=== PATIENT | male | born 1985 | race Caucasian/White ===

== ENCOUNTER 2017-02-22 14:17 | Outpatient (CLI) | payer BC, OTHER ==
[2017-02-24 10:43] LABS: BASOPHILS % (AUTO) 0.6 % (0.0-2.0); EOSINOPHILS # (AUTO) 0.2 K/uL (0.0-0.7); EOSINOPHILS % (AUTO) 2.6 % (0.0-7.0); HEMATOCRIT 44.5 % (40-50); LYMPHOCYTES # (AUTO) 2.4 K/UL (0.8-4.8); LYMPHOCYTES % (AUTO) 29.8 % (20.5-51.5); MEAN CORPUSCULAR HEMOGLOBIN 28.7 UUG (27.0-31.0); MEAN CORPUSCULAR HGB CONC 34 g/dL (32.0-37.0); MEAN CORPUSCULAR VOLUME 85.1 FL (82.0-92.0); MONOCYTES # (AUTO) 0.5 K/UL (0.1-1.30); MONOCYTES % (AUTO) 6.5 % (0.0-11.0); NEUTROPHILS # (AUTO) 4.8 K/UL (1.8-8.9); NEUTROPHILS % (AUTO) 60.5 % (38.5-71.5); PLATELET COUNT (AUTO) 222 K/UL (150-450); RED BLOOD CELL COUNT(AUTO) 5.23 MIL/UL (4.7-6.1); WHITE BLOOD COUNT (AUTO) 7.9 K/UL (4.0-11.2)
[2017-02-24 10:52] LABS: POTASSIUM 4.1 mmol/L (3.5-5.1)
[2017-02-24 10:58] LABS: BILIRUBIN,TOTAL 0.6 mg/dL (0.2-1.0); URIC ACID 7.8 mg/dL (3.5-7.2)
[2017-02-24 11:06] LABS: THYROID STIMULATING HORMONE 1.082 mIU/mL (0.358-3.740)
== END 2017-02-22 23:59 | disposition home or self-care (01) ==
LOC: LAB 14:17
PROVIDERS: ATTEND Internal Medicine
DX: M77.31 Calcaneal spur, right foot (principal)
CPT/HCPCS: 73630; 84443; 84550; 85025; 86140

== ENCOUNTER 2017-08-03 10:34 | Outpatient (CLI) | payer BC, OTHER ==
[2017-08-03 14:22] LABS: URIC ACID 7.2 mg/dL (3.5-7.2)
== END 2017-08-03 23:59 | disposition home or self-care (01) ==
LOC: RAD 10:34
PROVIDERS: ATTEND Emergency Medicine
DX: M76.891 Other specified enthesopathies of right lower limb, excluding foot (principal); M20.5X1 Other deformities of toe(s) (acquired), right foot
CPT/HCPCS: 36415; 73630; 84550; 86140

== ENCOUNTER 2017-08-17 16:15 | Outpatient (CLI) | payer BC, OTHER | END 2017-08-18 09:45 | disposition home or self-care (01) | LOC: RAD 16:15 | PROVIDERS: ATTEND Podiatrist Foot & Ankle Surgery | DX: M25.571 Pain in right ankle and joints of right foot (principal) | CPT/HCPCS: 73600; 73630; A4663 ==

== ENCOUNTER 2018-02-03 12:39 | Emergency (ER) | payer BC, OTHER ==
[~2018-02-03] VITALS: Ht 185.4 cm; Wt 122.5 kg
[2018-02-03] MEDS ORDERED: predniSONE 50 MG TABLET ONE (12:54)
[2018-02-03] MEDS ORDERED: CEPHALEXIN MONOHYDRATE 500 MG CAPSULE ONE (12:54)
[2018-02-03] MEDS ORDERED: CEPHALEXIN MONOHYDRATE 500 MG CAPSULE PO ONE (13:00)
[2018-02-03] MEDS ORDERED: predniSONE 50 MG TABLET PO ONE (13:00)
--- NOTE | 2018-02-03 13:04 | NUR ---
Patient discharged to home in stable conditon. Written and verbal after care instructions given. Patient verbalizes understanding of instructions.
[2018-02-03 13:06] LABS: BASOPHILS # (AUTO) 0.1 K/uL (0.0-8.0); BASOPHILS % (AUTO) 1.1 % (0.0-2.0); EOSINOPHILS # (AUTO) 0.2 K/uL (0.0-0.7); EOSINOPHILS % (AUTO) 1.9 % (0.0-7.0); HEMATOCRIT 41.7 % (36.7-47.1); HEMOGLOBIN 14.7 g/dL (12.5-16.3); LYMPHOCYTES # (AUTO) 1.9 K/uL (20.0-40.0); LYMPHOCYTES % (AUTO) 21.7 % (20.5-51.5); MEAN CORPUSCULAR HEMOGLOBIN 30.1 uug (23.8-33.4); MEAN CORPUSCULAR HGB CONC 35 g/dL (32.5-36.3); MEAN CORPUSCULAR VOLUME 85.7 fL (73.0-96.2); MONOCYTES # (AUTO) 0.6 K/uL (2.0-10.0); MONOCYTES % (AUTO) 6.7 % (0.0-11.0); NEUTROPHILS # (AUTO) 6.1 K/uL (1.8-8.9); NEUTROPHILS % (AUTO) 68.6 % (38.5-71.5); PLATELET COUNT (AUTO) 217 K/uL (152-348); RED BLOOD CELL COUNT(AUTO) 4.86 MIL/uL (4.06-5.63); WHITE BLOOD COUNT (AUTO) 8.9 K/uL (3.6-10.2)
[2018-02-03 13:14] LABS: CREATININE 0.9 mg/dL (0.6-1.3)
[2018-02-03 13:20] LABS: BILIRUBIN,TOTAL 0.3 mg/dL (0.2-1.0); TOTAL PROTEIN, SERUM 7.9 g/dL (6.4-8.2)
[2018-02-03 13:34] LABS: *MONOTEST NEGATIVE (NEGATIVE)
[2018-02-05 13:06] LABS: *EBV AB VCA IGG <18.0 U/mL (0.0-17.9); *EBV AB VCA IGM <36.0 U/mL (0.0-35.9); *EBV NUCLEAR AG AB <18.0 U/mL (0.0-17.9)
== END 2018-02-03 13:05 | disposition home or self-care (01) ==
LOC: ER 12:40
DX: I88.9 Nonspecific lymphadenitis, unspecified (principal); Z88.0 Allergy status to penicillin
CPT/HCPCS: 36415; 85025; 86308; A4663; J7512